=== PATIENT | female | born 1980 | race Caucasian/White ===

== ENCOUNTER → 2018-09-20 | Outpatient (REF) | payer OTHER ==
[2018-09-20 17:12] LABS: BASO # 0.1 10^3/uL (0.0-0.2); BASO % 0.7 % (0.0-1.0); EOS # 0.1 10^3/uL (0.0-0.50); EOS % 0.7 % (0.0-3.0); HEMATOCRIT 41.9 % (36.0-47.0); LYMPH # 2.8 10^3/uL (1.5-4.5); LYMPH % 25.8 % (24.0-44.0); MEAN CORPUSCULAR HEMOGLOBIN 30.2 pg (27.0-33.0); MEAN CORPUSCULAR HGB CONC 33.4 g/dl (32.0-36.5); MEAN CORPUSCULAR VOLUME 90.5 fl (80.0-96.0); MONO # 0.5 10^3/uL (0.0-0.8); MONO % 4.9 % (0.0-5.0); NEUTROPHILS # 7.3 10^3/uL (1.8-7.7); NEUTROPHILS % 67.6 % (36.0-66.0); PLATELET COUNT, AUTOMATED 300 10^3/uL (150-450); RED BLOOD COUNT 4.63 10^6/uL (4.00-5.40); WHITE BLOOD COUNT 10.7 10^3/uL (4.0-10.0)
[2018-09-20 17:44] LABS: ALBUMIN 3.8 GM/DL (3.2-5.2); ALT/SGPT 39 U/L (12-78); BILIRUBIN,TOTAL 0.8 MG/DL (0.2-1.0); BLOOD UREA NITROGEN 6 MG/DL (7-18); CALCIUM LEVEL 9.3 MG/DL (8.5-10.1); CARBON DIOXIDE LEVEL 27 MEQ/L (21-32); CHLORIDE LEVEL 107 MEQ/L (98-107); CREATININE FOR GFR 0.69 MG/DL (0.55-1.30); GLOMERULAR FILTRATION RATE > 60.0 (>60); GLUCOSE, FASTING 76 MG/DL (70-100); POTASSIUM SERUM 4.2 MEQ/L (3.5-5.1); SODIUM LEVEL 141 MEQ/L (136-145); TOTAL PROTEIN 6.6 GM/DL (6.4-8.2)
== END ==
LOC: M LAB REF 16:49
PROVIDERS: ATTEND Physician Assistant
DX: R11.0 Nausea (principal)

== ENCOUNTER → 2018-09-21 | Outpatient (REF) | payer OTHER | LOC: M LAB REF 13:10 | PROVIDERS: ATTEND Physician Assistant | DX: R10.9 Unspecified abdominal pain (principal) ==

== ENCOUNTER → 2021-09-08 | Outpatient (CLI) | payer MEDICAID | LOC: M OUTALCOH 10:09 | PROVIDERS: ATTEND Psychiatry & Neurology Psychiatry | DX: F10.20 Alcohol dependence, uncomplicated (principal); F15.20 Other stimulant dependence, uncomplicated; F14.20 Cocaine dependence, uncomplicated ==

== ENCOUNTER 2022-10-13 16:27 | Emergency (ER) | payer MEDICAID, OTHER ==
[~2022-10-13] VITALS: Ht 175.3 cm; Wt 90.2 kg
[2022-10-13] MEDS ORDERED: DOXY-443 PO (21:38)
[2022-10-13] MEDS ORDERED: DOXYCYCLINE HYCLATE 100MG TABLET PO ONE (21:40)
[2022-10-13 21:47] VITALS: BP 140/82
== END 2022-10-13 21:54 | disposition home or self-care (01) ==
LOC: M ED 16:27
DX: S90.512A Abrasion, left ankle, initial encounter (principal); L08.89 Other specified local infections of the skin and subcutaneous tissue; M77.32 Calcaneal spur, left foot; F17.200 Nicotine dependence, unspecified, uncomplicated

== ENCOUNTER 2023-11-13 02:34 | Emergency (ER) | payer OTHER ==
[~2023-11-13] VITALS: Ht 175.3 cm; Wt 104.5 kg
[2023-11-13 02:34] VITALS: BP 154/94; TEMP 96.7; O2SAT 99
[~2023-11-13 02:34] MED LIST: DOXY-443 PO
== END 2023-11-13 04:30 | disposition left against medical advice (07) ==
LOC: M ED 02:34
DX: Z53.21 Procedure and treatment not carried out due to patient leaving prior to being seen by health care provider (principal)

== ENCOUNTER → 2023-11-28 | Outpatient (REF) | payer OTHER ==
[2023-11-28 12:29] LABS: BASO # 0.1 10^3/uL (0.0-0.2); BASO % 1.5 % (0.0-1.0); EOS # 0.2 10^3/uL (0.0-0.5); EOS % 3.2 % (0.0-3.0); HEMATOCRIT 37.3 % (36.0-47.0); LYMPH # 2.3 10^3/uL (1.5-5.0); LYMPH % 42.4 % (24.0-44.0); MEAN CORPUSCULAR HEMOGLOBIN 25.6 pg (27.0-33.0); MEAN CORPUSCULAR HGB CONC 29.5 g/dl (32.0-36.5); MEAN CORPUSCULAR VOLUME 86.9 fl (80.0-96.0); MONO # 0.7 10^3/uL (0.0-0.8); MONO % 12.2 % (2.0-8.0); NEUTROPHILS # 2.2 10^3/uL (1.5-8.5); NEUTROPHILS % 40.3 % (36.0-66.0); PLATELET COUNT, AUTOMATED 437 10^3/uL (150-450); RED BLOOD COUNT 4.29 10^6/uL (4.00-5.40); WHITE BLOOD COUNT 5.3 10^3/uL (4.0-10.0)
[2023-11-28 12:39] LABS: ALBUMIN 3.1 G/DL (3.2-5.2); ALKALINE PHOSPHATASE 78 U/L (46-116); ALT/SGPT 29 U/L (7.0-40); AST/SGOT 20 U/L (<34); BILIRUBIN,TOTAL 0.2 MG/DL (0.3-1.2); BLOOD UREA NITROGEN 7 MG/DL (9-23); CALCIUM LEVEL 8.5 MG/DL (8.5-10.1); CARBON DIOXIDE LEVEL 26 MMOL/L (20-31); CHLORIDE LEVEL 113 MMOL/L (98-107); CHOLESTEROL LEVEL 226 MG/DL (<200); GLOMERULAR FILTRATION RATE > 60.0 (>58); GLUCOSE, FASTING 81 MG/DL (60-100); HDL CHOLESTEROL 72.7 MG/DL (>40); LDL CHOLESTEROL 116.5 MG/DL (<100); NON-HDL-C 153.3 MG/DL; POTASSIUM SERUM 4.4 MMOL/L (3.5-5.1); SODIUM LEVEL 142 MMOL/L (136-145); TOTAL PROTEIN 6.2 G/DL (5.7-8.2); TRIGLYCERIDES LEVEL 184 MG/DL (<150)
[2023-11-28 12:40] LABS: THYROID STIMULATING HORMONE 3.137 uIU/ML (0.55-4.78)
[2023-11-28 12:42] LABS: VITAMIN B12 LEVEL 654 PG/ML (211-911)
[2023-11-28 13:05] LABS: HIV 1&2 SCREEN NEGATIVE (NEGATIVE)
[2023-11-28 13:12] LABS: HEPATITIS C VIRUS ABY INDEX < 0.02 INDEX (<0.8)
== END ==
LOC: M LAB REF 12:04
PROVIDERS: ATTEND Physician Assistant
DX: E55.9 Vitamin D deficiency, unspecified (principal); R53.83 Other fatigue; E66.9 Obesity, unspecified; F10.21 Alcohol dependence, in remission; Z11.9 Encounter for screening for infectious and parasitic diseases, unspecified

== ENCOUNTER → 2023-12-03 | Outpatient (REF) | payer OTHER ==
[2023-12-03 13:41] LABS: BASO # 0.1 10^3/uL (0.0-0.2); EOS # 0.1 10^3/uL (0.0-0.5); EOS % 1.2 % (0.0-3.0); HEMATOCRIT 36.2 % (36.0-47.0); HEMOGLOBIN 11.1 g/dl (12.0-15.5); LYMPH # 2.1 10^3/uL (1.5-5.0); LYMPH % 41.6 % (24.0-44.0); MEAN CORPUSCULAR HEMOGLOBIN 26.3 pg (27.0-33.0); MEAN CORPUSCULAR HGB CONC 30.7 g/dl (32.0-36.5); MEAN CORPUSCULAR VOLUME 85.8 fl (80.0-96.0); MONO # 0.4 10^3/uL (0.0-0.8); MONO % 8.9 % (2.0-8.0); NEUTROPHILS # 2.3 10^3/uL (1.5-8.5); NEUTROPHILS % 46.9 % (36.0-66.0); PLATELET COUNT, AUTOMATED 423 10^3/uL (150-450); RED BLOOD COUNT 4.22 10^6/uL (4.00-5.40)
[2023-12-03 14:10] LABS: CHOLESTEROL RISK RATIO 3.45 (<5); HDL CHOLESTEROL 60.7 MG/DL (>40); LDL CHOLESTEROL 134.7 MG/DL (<100); NON-HDL-C 149.3 MG/DL
[2023-12-03 14:11] LABS: FERRITIN 8.8 NG/ML (7.3-270.7)
== END ==
LOC: M LAB REF 13:23
PROVIDERS: ATTEND Physician Assistant
DX: E78.5 Hyperlipidemia, unspecified (principal); D64.9 Anemia, unspecified

== ENCOUNTER → 2023-12-25 | Outpatient (REF) | payer OTHER | LOC: M LAB REF 12:27 | PROVIDERS: ATTEND Physician Assistant | DX: Z12.4 Encounter for screening for malignant neoplasm of cervix (principal) ==

== ENCOUNTER → 2024-01-30 | Outpatient (REF) | payer OTHER, MEDICAID ==
[2024-01-30 12:43] LABS: APPEARANCE, URINE CLOUDY (CLEAR); BACTERIA, URINE AUTO 1+ (NEGATIVE); BILIRUBIN, URINE AUTO NEGATIVE (NEGATIVE); BLOOD, URINE BLOOD NEGATIVE (NEGATIVE); CALCIUM OXALATE CRYSTALS SMALL; COLOR, URINE YELLOW (YELLOW); GLUCOSE, URINE (UA) AUTO NEGATIVE (NEGATIVE); KETONE, URINE AUTO NEGATIVE (NEGATIVE); LEUKOCYTE ESTERASE, URINE AUTO NEGATIVE (NEGATIVE); MUCUS, URINE SMALL (NEGATIVE); NITRITE, URINE AUTO NEGATIVE (NEGATIVE); PROTEIN, URINE AUTO NEGATIVE (NEGATIVE); RBC, URINE AUTO 4 /HPF (0-3); SPECIFIC GRAVITY URINE AUTO 1.024 (1.002-1.035); SQUAMOUS EPITHELIAL CELL UR AU 10 /HPF (0-6); WBC, URINE AUTO 13 /HPF (0-3)
[2024-01-30 14:00] LABS: Trichomonas vaginalis (AMP) NOT DETECTED (NEGATIVE)
[2024-01-30 14:24] LABS: GC DNA AMPLIFICATION NEGATIVE (NEGATIVE)
== END ==
LOC: M LAB REF 12:11
PROVIDERS: ATTEND Physician Assistant
DX: N89.8 Other specified noninflammatory disorders of vagina (principal)

== ENCOUNTER → 2024-11-18 | Outpatient (REF) ==
[~2024-11-18] MED LIST changes: +DOXY-441 PO; -DOXY-443 PO
== END ==
LOC: M LAB 12:31
PROVIDERS: ATTEND Family Medicine
DX: Z02.9 Encounter for administrative examinations, unspecified (principal)

== ENCOUNTER 2025-02-08 19:27 | Emergency (ER) | payer SELFPAY ==
[~2025-02-08] VITALS: Ht 175.3 cm; Wt 95.5 kg
[2025-02-08] MEDS: NS (Normal Saline) 0.9% 1,000 ML IV ONE (19:35)
[2025-02-08 20:01] LABS: BASO % 0.4 % (0.0-1.0); EOS % 0.4 % (0.0-3.0); HEMATOCRIT 26.9 % (36.0-47.0); LYMPH # 1.5 10^3/uL (1.5-5.0); LYMPH % 16.6 % (24.0-44.0); MEAN CORPUSCULAR HEMOGLOBIN 18.7 pg (27.0-33.0); MEAN CORPUSCULAR VOLUME 71.7 fl (80.0-96.0); MONO # 0.7 10^3/uL (0.0-0.8); MONO % 8.1 % (2.0-8.0); NEUTROPHILS # 6.7 10^3/uL (1.5-8.5); NEUTROPHILS % 73.9 % (36.0-66.0); PLATELET COUNT, AUTOMATED 258 10^3/uL (150-450); RED BLOOD COUNT 3.75 10^6/uL (4.00-5.40)
[2025-02-08 20:24] LABS: CK-MB VALUE MASS 1.1 NG/ML (<3.6); LIPASE 38 U/L (12-53)
[2025-02-08 20:27] LABS: ALKALINE PHOSPHATASE 103 U/L (35-104); ALT/SGPT 39 U/L (7.0-40); AST/SGOT 48 U/L (<34); BILIRUBIN,DIRECT 0.3 MG/DL (<0.4); BILIRUBIN,TOTAL 0.7 MG/DL (0.3-1.2); BLOOD UREA NITROGEN 5 MG/DL (9-23); CALCIUM LEVEL 7.8 MG/DL (8.5-10.1); CARBON DIOXIDE LEVEL 17 MMOL/L (20-31); CHLORIDE LEVEL 102 MMOL/L (98-107); CPK CREATINE PHOSPHOKINASE 36 U/L (34-145); CREATININE FOR GFR 0.68 MG/DL (0.55-1.30); GLOMERULAR FILTRATION RATE > 90.0 (>58); GLUCOSE, FASTING 134 MG/DL (60-100); MB/CK RELATIVE INDEX 3.05 (< OR =4); POTASSIUM SERUM 3.2 MMOL/L (3.5-5.1); SODIUM LEVEL 135 MMOL/L (136-145); TOTAL PROTEIN 6.3 G/DL (5.7-8.2)
[2025-02-08 20:33] LABS: PROCALCITONIN 0.11 ng/ml
[2025-02-08] MEDS: NS (Normal Saline) 0.9% 2,860 ML in IV 1 EA IV ONE (20:40)
[2025-02-08] MEDS: PIPERACILLIN/TAZOBACTAM SOD 4.5 GM in DEXTROSE 5% (D5W) ADV/MINI-BAG 50 ML IV ONE (21:00)
[2025-02-08] MEDS ORDERED: ISOVUE-370 76% 100ML VIAL As Ordered ONE (21:21)
[2025-02-08 21:22] LABS: CK-MB VALUE MASS 1.3 NG/ML (<3.6)
[2025-02-08 21:24] LABS: MB/CK RELATIVE INDEX 3.61 (< OR =4)
[2025-02-08 21:43] LABS: KETONE, URINE AUTO RFX NEGATIVE (NEGATIVE); LEUKOCYTE ESTERASE UR AUTO RFX TRACE (NEGATIVE); NITRITE, URINE AUTO RFX NEGATIVE (NEGATIVE); RBC, URINE AUTO RFX 1 /HPF (0-3); SQUAM EPITHELIAL CELL UR AURFX 1 /HPF (0-6); WBC, URINE AUTO RFX 2 /HPF (0-3)
[2025-02-08] MEDS ORDERED: HEPARIN SOD (PORCINE) 5000UNITS/ML 1ML VIAL/SYRINGE IV PRN (22:00)
[2025-02-08 22:12] LABS: ABG BASE EXCESS -10.1 (-2.0-2.0); ABG HCO3 14.2 MMOL/L (22.0-26.0); ABG O2 SATURATION 99.3 % (95.0-99.0); ABG PARTIAL PRESSURE CO2 25.3 mmHg (35.0-45.0); ABG PARTIAL PRESSURE O2 182.2 mmHg (75.0-100.0); ABG STANDARD HCO3 16.2 MMOL/L. (22.0-26.0); ABG TOTAL CO2 14.9 MMOL/L (22.0-29.0); ABG pH (ARTERIAL) 7.366 UNITS (7.350-7.450)
[2025-02-08] MEDS ORDERED: HEPARIN 25,000 UNITS/250 ML D5W BAG (100 UNITS/ML) As Ordered ONE (22:30)
[2025-02-08] MEDS: HEPARIN SOD (PORCINE) 5000UNITS/ML 1ML VIAL/SYRINGE IV ONE (22:42)
[2025-02-08] MEDS: HEPARIN DRIP 25,000 UNITS in IV 1 EA IV SCH (22:43)
[2025-02-08 23:00] VITALS: BP 100/51; TEMP 97.7; O2SAT 100
[2025-02-08 23:15] VITALS: BP 105/56; TEMP 97.7; O2SAT 100
[2025-02-08] MEDS ORDERED: ONDANSETRON 4MG 2ML VIAL As Ordered ONE (23:58)
[2025-02-09] VITALS: BP 111/73; TEMP 97.4; O2SAT 100
[2025-02-09] MEDS: ONDANSETRON 4MG 2ML VIAL IV ONE (00:04)
[2025-02-09 00:08] VITALS: BP 113/72; TEMP 97.3; O2SAT 100
== END 2025-02-09 00:34 | disposition short-term general hospital (02) ==
LOC: M ED 19:27
DX: I95.1 Orthostatic hypotension (principal); I26.09 Other pulmonary embolism with acute cor pulmonale; D62 Acute posthemorrhagic anemia; I82.411 Acute embolism and thrombosis of right femoral vein; I82.431 Acute embolism and thrombosis of right popliteal vein; I82.461 Acute embolism and thrombosis of right calf muscular vein; R93.89 Abnormal findings on diagnostic imaging of other specified body structures; N83.291 Other ovarian cyst, right side; N83.292 Other ovarian cyst, left side; K76.0 Fatty (change of) liver, not elsewhere classified; F17.200 Nicotine dependence, unspecified, uncomplicated
CPT/HCPCS: 36600; 71045; 71275; 74177; 80047; 80048; 80076; 81001; 82550; 82553; 82803; 83605; 83690; 84145; 84484; 85025; 85730; 86850; 86900; 86901; 86920; 87040; 87086; 87486; 87581; 87633; 87798; 93005; 93041; 93970; 96361; 96365; 96366; 96368; 96375; 99291; J2405; J2543; P9016; Q9967

== ENCOUNTER → 2025-02-26 | Outpatient (REF) | payer SELFPAY ==
[2025-02-26 17:43] LABS: BASO # 0.1 10^3/uL (0.0-0.2); BASO % 1.3 % (0.0-1.0); EOS # 0.1 10^3/uL (0.0-0.5); EOS % 2.1 % (0.0-3.0); HEMATOCRIT 28.6 % (36.0-47.0); HEMOGLOBIN 7.7 g/dl (12.0-15.5); LYMPH # 2.1 10^3/uL (1.5-5.0); LYMPH % 39.7 % (24.0-44.0); MEAN CORPUSCULAR HEMOGLOBIN 21.5 pg (27.0-33.0); MEAN CORPUSCULAR HGB CONC 26.9 g/dl (32.0-36.5); MEAN CORPUSCULAR VOLUME 79.9 fl (80.0-96.0); MONO # 0.4 10^3/uL (0.0-0.8); MONO % 7.6 % (2.0-8.0); NEUTROPHILS # 2.6 10^3/uL (1.5-8.5); NEUTROPHILS % 49.1 % (36.0-66.0); PLATELET COUNT, AUTOMATED 559 10^3/uL (150-450); RED BLOOD COUNT 3.58 10^6/uL (4.00-5.40); WHITE BLOOD COUNT 5.3 10^3/uL (4.0-10.0)
[2025-02-26 18:00] LABS: ALBUMIN 3.8 G/DL (3.2-5.2); ALKALINE PHOSPHATASE 61 U/L (35-104); ALT/SGPT 31 U/L (7.0-40); AST/SGOT 27 U/L (<34); BILIRUBIN,TOTAL 0.9 MG/DL (0.3-1.2); BLOOD UREA NITROGEN 8 MG/DL (9-23); CALCIUM LEVEL 9.2 MG/DL (8.5-10.1); CARBON DIOXIDE LEVEL 23 MMOL/L (20-31); CHLORIDE LEVEL 109 MMOL/L (98-107); CREATININE FOR GFR 0.72 MG/DL (0.55-1.30); GLOMERULAR FILTRATION RATE > 90.0 (>58); GLUCOSE, FASTING 94 MG/DL (60-100); POTASSIUM SERUM 4.4 MMOL/L (3.5-5.1); SODIUM LEVEL 142 MMOL/L (136-145); TOTAL PROTEIN 6.7 G/DL (5.7-8.2)
[2025-02-26 18:03] LABS: INR 0.94; PARTIAL THROMBOPLASTIN TIME 25.2 SECONDS (24.8-34.2); PROTHROMBIN TIME 12.8 SECONDS (12.5-14.5)
== END ==
LOC: M LAB REF 17:11
PROVIDERS: ATTEND Physician Assistant
DX: N92.4 Excessive bleeding in the premenopausal period (principal)

== ENCOUNTER → 2025-04-13 | Outpatient (CLI) | payer MEDICAID, OTHER ==
[~2025-04-13] MED LIST changes: +ELIQ5TAB PO; +IRON65TA2 PO; +MEGE20TA3 PO
== END ==
LOC: M RAD 15:27
PROVIDERS: ATTEND Specialist
DX: Z86.711 Personal history of pulmonary embolism (principal); D50.9 Iron deficiency anemia, unspecified

== ENCOUNTER → 2025-05-19 | Outpatient (CLI) | payer MEDICAID, OTHER ==
[~2025-05-19] MED LIST changes: +ABIL1TAB11 PO
== END ==
LOC: M WHC 12:59
PROVIDERS: ATTEND Specialist
DX: Z12.31 Encounter for screening mammogram for malignant neoplasm of breast (principal); R92.323 Mammographic fibroglandular density, bilateral breasts

== ENCOUNTER → 2025-07-22 | Outpatient (REF) | payer OTHER ==
[2025-07-22 18:38] LABS: BASO # 0.1 10^3/uL (0.0-0.2); BASO % 0.8 % (0.0-1.0); EOS # 0.1 10^3/uL (0.0-0.5); EOS % 1.1 % (0.0-3.0); LYMPH # 2.3 10^3/uL (1.5-5.0); LYMPH % 26.9 % (24.0-44.0); MONO # 0.7 10^3/uL (0.0-0.8); MONO % 7.7 % (2.0-8.0); NEUTROPHILS # 5.3 10^3/uL (1.5-8.5); NEUTROPHILS % 63.3 % (36.0-66.0); PLATELET COUNT, AUTOMATED 315 10^3/uL (150-450)
[2025-07-22 19:09] LABS: IRON (FE) 139.0 UG/DL (50-170); PERCENT SATURATION 35.8 % (13.2-45.0)
[2025-07-22 19:10] LABS: CALCIUM LEVEL 9.0 MG/DL (8.5-10.1); CARBON DIOXIDE LEVEL 25.0 MMOL/L (20-31); CHLORIDE LEVEL 105.0 MMOL/L (98-107); CHOLESTEROL LEVEL 209.0 MG/DL (<200); CHOLESTEROL RISK RATIO 3.25 (<5); CREATININE FOR GFR 0.9 MG/DL (0.55-1.30); GLOMERULAR FILTRATION RATE 79.9 (>58); LDL CHOLESTEROL 126.8 MG/DL (<100); NON-HDL-C 144.8 MG/DL; POTASSIUM SERUM 4.2 MMOL/L (3.5-5.1); SODIUM LEVEL 142.0 MMOL/L (136-145); TRIGLYCERIDES LEVEL 90.0 MG/DL (<150)
== END ==
LOC: M LAB REF 16:29
PROVIDERS: ATTEND Physician Assistant
DX: D50.9 Iron deficiency anemia, unspecified (principal); E78.5 Hyperlipidemia, unspecified

== ENCOUNTER → 2025-08-12 | Outpatient (REF) | payer OTHER ==
[~2025-08-12] MED LIST changes: +ABIL10TA9 PO; +DEXTROAMP-AMPHETAMIN; +LEVO100T5
[2025-08-12 16:50] LABS: BASO # 0.1 10^3/uL (0.0-0.2); BASO % 1.1 % (0.0-1.0); EOS # 0.1 10^3/uL (0.0-0.5); EOS % 0.9 % (0.0-3.0); LYMPH # 2.0 10^3/uL (1.5-5.0); LYMPH % 35.8 % (24.0-44.0); MONO # 0.5 10^3/uL (0.0-0.8); MONO % 8.2 % (2.0-8.0); NEUTROPHILS # 3.0 10^3/uL (1.5-8.5); NEUTROPHILS % 53.8 % (36.0-66.0); PLATELET COUNT, AUTOMATED 400 10^3/uL (150-450)
[2025-08-12 17:07] LABS: IRON (FE) 13.0 UG/DL (50-170); PERCENT SATURATION 2.9 % (13.2-45.0)
[2025-08-12 17:10] LABS: FREE T4 1.65 NG/DL (0.89-1.76)
[2025-08-12 17:12] LABS: THYROGLOBULIN ANTIBODY 17.0 U/ML (<60.0); THYROID PEROXIDASE ANTIBODY 31.0 U/ML (<60.0)
== END ==
LOC: M LAB REF 16:22
PROVIDERS: ATTEND Physician Assistant
DX: D50.9 Iron deficiency anemia, unspecified (principal); E03.9 Hypothyroidism, unspecified